=== PATIENT | male | born 1980 | race American Indian/Alaskan Native ===

== ENCOUNTER 2017-05-18 08:59 | Emergency (ER) | payer SELFPAY ==
[2017-05-18 09:14] VITALS: BP 140/86
--- NOTE | 2017-05-18 10:50 | Emergency Department Report ---
HPI - General Chief Complaint: Urogenital-Male Time Seen by Provider: 05/18/17 10:23 - HPI HPI: Patient is a 36-year-old male with no prior medical history who presents to ED complaining of bilateral flank pain and left-sided back pain 2 weeks. Patient states symptoms have gotten worse in the past couple of days brought him in. Patient admits urinary frequency and states sometimes flank pain is related to it urination. Patient denies any injuries/trauma. He denies dysuria, penile discharge, testicular swelling or lesions ED Past Medical Hx - Past Medical History Hx Asthma: Yes - Surgical History Past Surgical History?: Yes Hx Appendectomy: Yes - Social History Smoking Status: Never Smoker Substance Use Type: None ED Review of Systems ROS: Stated complaint: SIDE PAIN Other details as noted in HPI Constitutional: denies: chills, fever Eyes: denies: eye pain, eye discharge, vision change ENT: denies: ear pain, throat pain Respiratory: denies: cough, shortness of breath, wheezing Cardiovascular: denies: chest pain, palpitations Endocrine: no symptoms reported Gastrointestinal: denies: abdominal pain, nausea, diarrhea Genitourinary: denies: urgency, dysuria Musculoskeletal: denies: back pain, joint swelling, arthralgia Skin: denies: rash, lesions Neurological: denies: headache, weakness, paresthesias Psychiatric: denies: anxiety, depression Hematological/Lymphatic: denies: easy bleeding, easy bruising Physical Exam - Physical Exam Vital Signs: Vital Signs 05/18/17 09:10 Temperature 97.7 F Pulse Rate 96 H Respiratory 20 Rate Blood Pressure 140/86 O2 Sat by Pulse 97 Oximetry Physical Exam: GENERAL: Alert and oriented x3, no apparent distress, Normal Gait, atraumatic. HEAD: Head is normocephalic and a-traumatic. LUNGS: Symetrical with respiration, No wheezing, no rales or crackles, CTAB. HEART: S1, S2 present, regular rate and rhythm without murmur, no rubs, no gallops. Non tender to palpation ABDOMEN: No organomegaly was noted,Positive bowel sounds, soft, and non- distended. . Nontender to palpation on all Quadrants, left CVA tenderness. BACK: Full range of motion, no spinal tenderness, nontender to palpation. NEUROLOGIC: The patient is cooperative with no focal neurologic deficits. Normal speech. Normal sensation in bilateral upper and lower extremities, No loss of sensation, SKIN: Warm and dry, No lesions, No ulceration or induration present. ED Course Vital Signs 05/18/17 09:10 Temperature 97.7 F Pulse Rate 96 H Respiratory 20 Rate Blood Pressure 140/86 O2 Sat by Pulse 97 Oximetry ED Medical Decision Making - EKG Data Interpretation: normal EKG - Medical Decision Making 36-year-old male presents with flank pain with leukorrhea ED course: urinalysis obtained. Urinalysis positive for leukorrhea, blood. leuk est Patient received 250 mg of Rocephin, azithromycin 1 g, Flagyl 2 g. Discussed with patient possible STD due to exposure. Discussed possible kidney stone and to follow up with primary care physician Discussed with patient treatment based on symptoms and signs of urethritis. urethritis in Men is most likely caused by gonorrhea and chlamydia patient was treated empirically Discussed prophylaxis treatment patient is to abstain from sex 7-10 days as treatment. Discussed the follow-up with the health department for further STD testing. Patient's alert and oriented times 3. Vital signs are normal patient is in no acute distress. Patient will be discharged home with instructions. - Differential Diagnosis urethritis, kidney stones, cystitis, myalgia Critical care attestation.: If time is entered above; I have spent that time in minutes in the direct care of this critically ill patient, excluding procedure time. ED Disposition Clinical Impression: Flank pain, Urethritis UTI (urinary tract infection) Qualifiers: Urinary tract infection type: acute cystitis Hematuria presence: with hematuria Qualified Code(s): N30.01 - Acute cystitis with hematuria Disposition: TO HOME OR SELFCARE Is pt being admited?: No Does the pt Need Aspirin: No Condition: Stable Instructions: Nonspecific Urethritis in Men (ED), Kidney Stones (ED), Flank Pain (ED), Urinary Tract Infection in Men (ED) Additional Instructions: Make sure to follow up with the primary care physician as discussed. Take all your medications as you've been prescribed. Read instructions as given. If you have any worsening symptoms or develop new symptoms please return to ED immediately. Referrals: COLT FLOYD MD [Primary Care Provider] - 3-5 Days JVUENAL WAHL MD [Referring] - 3-5 Days [facility] [Outside] - 3-[address] [facility] [Outside] - 3-5 Days Forms: STI Treatment and Prevention, Accompanied Note Time of Disposition: 11:35
[2017-05-18 10:55] LABS: Bilirubin,Urine NEG (Negative); Blood,Urine MOD (Negative); Color,Urine Yellow (Yellow); Mucus,Urine 2+ /HPF; Protein,Urine <15 mg/dL mg/dL (Negative); Urobilinogen,Urine < 2.0 mg/dL (<2.0)
[2017-05-18] MEDS ORDERED: ZITHROMAX ONE (11:22)
[2017-05-18] MEDS ORDERED: ROCEPHIN IM ONE (11:22)
[2017-05-18] MEDS: XYLOCAINE 1% MPF 5 mL INFILTRATI ONE (11:29)
[2017-05-18] MEDS: FLAGYL PO ONE (11:29)
[2017-05-18] MEDS: ZITHROMAX PO ONE (11:29)
[2017-05-18] MEDS: ROCEPHIN IM ONE (11:29)
== END 2017-05-18 11:52 | disposition home or self-care (01) ==
LOC: ED 08:59
DX: N30.01 Acute cystitis with hematuria (principal); N34.2 Other urethritis; J45.909 Unspecified asthma, uncomplicated; Z90.49 Acquired absence of other specified parts of digestive tract; Z91.013 Allergy to seafood
CPT/HCPCS: 81001; 96372; 99283; J0696

== ENCOUNTER 2017-06-11 00:32 | Emergency (ER) | payer SELFPAY ==
[2017-06-11 00:52] VITALS: BP 136/87
[2017-06-11 01:49] LABS: Alanine Aminotransferase 16 units/L (7-56); Albumin 4.3 g/dL (3.9-5); BUN/Creatinine Ratio 13; Blood Urea Nitrogen 13 mg/dL (9-20); Calcium 9.3 mg/dL (8.4-10.2); Hemolysis Index 11
[2017-06-11 01:52] LABS: Bacteria,Urine 1+ /HPF (Negative); Bilirubin,Urine NEG (Negative); Blood,Urine LG (Negative); Calcium Oxalate Crystals,Urine FEW; Color,Urine Yellow (Yellow); Mucus,Urine 3+ /HPF; Urobilinogen,Urine < 2.0 mg/dL (<2.0)
[2017-06-11 01:53] LABS: RBC,Urine > 182.0 /HPF (0.0-6.0)
[2017-06-11 01:55] LABS: Basophils % (Auto) 0.5 % (0.0-1.8); Eosinophils # (Auto) 0.2 K/mm3 (0.0-0.4); Eosinophils % (Auto) 3.4 % (0.0-4.3); Hematocrit 46.9 % (35.5-45.6); Hemoglobin 15.1 gm/dl (11.8-15.2); Lymphocytes # (Auto) 1.9 K/mm3 (1.2-5.4); Lymphocytes % (Auto) 35.1 % (13.4-35.0); Mean Corpuscular HGB Conc 32 % (32-34); Mean Corpuscular Volume 71 fl (84-94); Monocytes # (Auto) 0.8 K/mm3 (0.0-0.8); Monocytes % (Auto) 14.4 % (0.0-7.3); Platelet Count 183 K/mm3 (140-440); Red Blood Count 6.65 M/mm3 (3.65-5.03)
[2017-06-11 01:56] LABS: Mean Corpuscular Hemoglobin 23 pg (28-32)
[2017-06-11] MEDS ORDERED: MOTRIN ONE ×3 (02:21→02:24)
[2017-06-11] MEDS ORDERED: MOTRIN PO ONE (05:42)
[2017-06-11] MEDS ORDERED: BENTYL IM ONE (12:30)
--- NOTE | 2017-06-11 12:31 | Emergency Department Report ---
Blank Doc - Documentation Documentation: Patient is a 36-year-old -[place] Citizen male who is presenting with diarrhea for approximately 3 days. Patient states she has some generalized crampy abdominal discomfort. Patient denies any vomiting or fever. Patient will have x-ray was abdomen to rule out a partial obstructive condition.
--- NOTE | 2017-06-11 13:02 | XRay Report ---
ABDOMINAL SERIES: History: Diarrhea, abdominal cramps. Erect chest film shows no acute or significant changes involving the heart or lung molina. There is no evidence of free air beneath the diaphragms. The gas pattern within the abdomen is unremarkable. There is no evidence of bowel dilatation, significant air-fluid levels, or masses. Organ shadows are unremarkable. There are multiple calcifications overlying the left renal shadow. The largest calcification measures 4.2 x 2.0 cm and probably represents a staghorn calculus. IMPRESSION: Left nephrolithiasis.
--- NOTE | 2017-06-11 13:06 | Emergency Department Report ---
ED Abdominal Pain HPI - General Chief Complaint: Abdominal Pain Stated Complaint: ABDOMINAL PAIN Time Seen by Provider: 06/11/17 12:16 Source: patient, family Mode of arrival: Ambulatory Limitations: No Limitations - History of Present Illness Initial Comments: Patient is a 36-year-old -Chinese male who is presenting with diarrhea for approximately 3 days. Patient describes abdominal pain crampy, generalized 10 out of 10 crampy, nothing makes it better and nothing makes it worst. Patient states she has some generalized crampy abdominal discomfort. Patient denies any vomiting or fever. Denies any rectal bleeding. Denies any vomiting. Patient also reports hemorrhoids. He said hemorrhoid is on the outside of his rectum and every time he has diarrhea stool it hurts. He is Also complaining of leg pain assessment ongoing. He said leg pain is crampy. He is pointing to his right calf area. Denies any swelling. Denies any injury. Patient has a history of asthma and has surgery previously appendectomy. Denies any rectal bleeding. Denies any urinary burning, frequency or urgency. Denies any back pain. Denies any blood in his urine. MD Complaint: abdominal pain Onset/Timin -: days(s) Location: diffuse Radiation: none Migration to: no migration Severity: severe Severity scale (0 -10): 10 Quality: cramping Consistency: constant Improves With: nothing Worsens With: nothing Context: possible food poisoning Associated Symptoms: nausea, diarrhea, other (hemorrhoids and). denies: vomiting, fever, chills, constipation, dysuria, hematemesis, hematochezia, melena, hematuria, anorexia, syncope Treatments Prior to Arrival: NSAIDs - Related Data Previous Rx's Medication Instructions Recorded Last Taken Type Ciprofloxacin HCl [Cipro] 500 mg PO Q12H 10 Days #20 tablet 06/11/17 Unknown Rx Dicyclomine [Bentyl] 20 mg PO Q6H PRN #12 tablet 06/11/17 Unknown Rx HYDROcodone/APAP 7.5-325 [[place] 1 each PO Q6HR PRN #12 tablet 06/11/17 Unknown Rx 7.5/325] Hydrocortisone [Proctosol-Hc] 28.35 gm TP BID PRN #1 [email or web address] 06/11/17 Unknown Rx Promethazine [Phenergan TAB] 25 mg PO Q6HR PRN #12 tab 06/11/17 Unknown Rx metroNIDAZOLE [Flagyl] 500 mg PO Q12HR 7 Days #14 tab 06/11/17 Unknown Rx Allergies Allergy/AdvReac Type Severity Reaction Status Date / Time shellfish derived Allergy Hives Verified 05/18/17 09:16 ED Review of Systems ROS: Stated complaint: ABDOMINAL PAIN Other details as noted in HPI Comment: All other systems reviewed and negative Constitutional: no symptoms reported ENT: denies: ear pain, throat pain, congestion Respiratory: no symptoms reported Cardiovascular: denies: chest pain, palpitations, dyspnea on exertion, orthopnea , edema, syncope, paroxysmal nocturnal dyspnea Gastrointestinal: abdominal pain, nausea, diarrhea, other (hemorrhoids). denies : vomiting, constipation, hematemesis, hematochezia Genitourinary: denies: urgency, dysuria, frequency, hematuria, discharge, testicular pain, testicular mass Musculoskeletal: arthralgia. denies: back pain, joint swelling, myalgia Skin: denies: rash Neurological: denies: headache, weakness, numbness, paresthesias, confusion, abnormal gait, vertigo ED Past Medical Hx - Past Medical History Previous Medical History?: Yes Hx Asthma: Yes - Surgical History Past Surgical History?: Yes Hx Appendectomy: Yes - Family History Family history: hypertension - Social History Smoking Status: Never Smoker Substance Use Type: None - Medications Home Medications: Home Medications Medication Instructions Recorded Confirmed Last Taken Type Ciprofloxacin HCl [Cipro] 500 mg PO Q12H 10 Days #20 tablet 06/11/17 Unknown Rx Dicyclomine [Bentyl] 20 mg PO Q6H PRN #12 tablet 06/11/17 Unknown Rx HYDROcodone/APAP 7.5-325 [[place] 1 each PO Q6HR PRN #12 tablet 06/11/17 Unknown Rx 7.5/325] Hydrocortisone [Proctosol-Hc] 28.35 gm TP BID PRN #1 [email or web address] 06/11/17 Unknown Rx Promethazine [Phenergan TAB] 25 mg PO Q6HR PRN #12 tab 06/11/17 Unknown Rx metroNIDAZOLE [Flagyl] 500 mg PO Q12HR 7 Days #14 tab 06/11/17 Unknown Rx ED Physical Exam - General Limitations: No Limitations General appearance: alert, in no apparent distress - Head Head exam: Present: atraumatic, normocephalic, normal inspection - Eye Eye exam: Present: normal appearance, PERRL, EOMI Pupils: Present: normal accommodation - ENT ENT exam: Present: normal exam, normal orophraynx, mucous membranes moist - Neck Neck exam: Present: normal inspection, full ROM, other (no C-spine tenderness). Absent: tenderness, lymphadenopathy - Respiratory Respiratory exam: Present: normal lung sounds bilaterally. Absent: respiratory distress, chest wall tenderness - Cardiovascular Cardiovascular Exam: Present: regular rate, normal rhythm, normal heart sounds - GI/Abdominal GI/Abdominal exam: Present: soft, normal bowel sounds. Absent: distended, tenderness, guarding, rebound, rigid, organomegaly, mass, bruit, pulsatile mass , hernia - Rectal Rectal exam: Present: normal inspection, hemorrhoids (small nonthrombosed left) , tenderness (hemorrhoid site) - Extremities Exam Extremities exam: Present: normal inspection, full ROM, normal capillary refill , other (no clubbing, cyanosis or edema. +2 pulses to all extremities. No neurovascular compromise. +5 strength in all extremities. No abrasion, contusion or laceration to extremities. Bilateral thigh without any abnormality. Nontender to palpate). Absent: tenderness, pedal edema, joint swelling, calf tenderness - Expanded Upper Extremity Exam small nonthrombosed left external hemorrhoid Shoulder Exam: Present: crepidus - Back Exam Back exam: Present: normal inspection, full ROM, other (ambulates without any difficulties). Absent: tenderness, CVA tenderness (R), CVA tenderness (L), muscle spasm, paraspinal tenderness, vertebral tenderness, rash noted - Neurological Exam Neurological exam: Present: alert, oriented X3, normal gait, reflexes normal. Absent: motor sensory deficit - Psychiatric Psychiatric exam: Present: normal affect, normal mood - Skin Skin exam: Present: warm, dry, intact, normal color. Absent: rash ED Course Vital Signs 06/11/17 00:50 Temperature 98.0 F Pulse Rate 77 Respiratory 17 Rate Blood Pressure 136/87 Lab Results 06/11/17 06/11/17 06/11/17 Range/Units 00:49 00:57 00:57 WBC 5.5 (4.5-11.0) K/mm3 RBC 6.65 H (3.65-5.03) M/mm3 Hgb 15.1 (11.8-15.2) gm/dl Hct 46.9 H (35.5-45.6) % MCV 71 L (84-94) fl MCH 23 L (28-32) pg MCHC 32 (32-34) % RDW 15.0 (13.2-15.2) % Plt Count 183 (140-440) K/mm3 Lymph % (Auto) 35.1 H (13.4-35.0) % [place] % (Auto) 14.4 H (0.0-7.3) % Eos % (Auto) 3.4 (0.0-4.3) % Baso % (Auto) 0.5 (0.0-1.8) % Lymph # 1.9 (1.2-5.4) K/mm3 [place] # 0.8 (0.0-0.8) K/mm3 Eos # 0.2 (0.0-0.4) K/mm3 Baso # 0.0 (0.0-0.1) K/mm3 Seg Neutrophils % 46.6 (40.0-70.0) % Seg Neutrophils # 2.5 (1.8-7.7) K/mm3 Sodium 142 (137-145) mmol/L Potassium 4.4 (3.6-5.0) mmol/L Chloride 101.3 (98-107) mmol/L Carbon Dioxide 30 (22-30) mmol/L Anion Gap 15 mmol/L BUN 13 (9-20) mg/dL Creatinine 1.0 (0.8-1.5) mg/dL Estimated GFR > 60 ml/min BUN/Creatinine Ratio 13 % Glucose 92 (75-100) mg/dL Calcium 9.3 (8.4-10.2) mg/dL Total Bilirubin 0.80 (0.1-1.2) mg/dL AST 19 (5-40) units/L ALT 16 (7-56) units/L Alkaline Phosphatase 61 (35-129) units/L Total Protein 6.7 (6.3-8.2) g/dL Albumin 4.3 (3.9-5) g/dL Albumin/Globulin Ratio 1.8 % Urine Color Yellow (Yellow) Urine Turbidity Clear (Clear) Urine pH 6.0 (5.0-7.0) Ur Specific [place] 1.018 (1.003-1.030) Urine Protein 30 mg/dl (Negative) mg/dL Urine Glucose (UA) Neg (Negative) mg/dL Urine Ketones Neg (Negative) mg/dL Urine Blood Lg (Negative) Urine Nitrite Neg (Negative) Urine Bilirubin Neg (Negative) Urine Urobilinogen < 2.0 (<2.0) mg/dL Ur Leukocyte Esterase Lg (Negative) Urine WBC (Auto) 60.0 H (0.0-6.0) /HPF Urine RBC (Auto) > 182.0 (0.0-6.0) /HPF U Epithel Cells (Auto) < 1.0 (0-13.0) /HPF Urine Bacteria (Auto) 1+ (Negative) /HPF Calcium Oxalate Crystal Few Urine Mucus 3+ /HPF Urine culture pending Vital Signs 06/11/17 00:50 Temperature 98.0 F Pulse Rate 77 Respiratory 17 Rate Blood Pressure 136/87 Respiration 18 - Reevaluation(s) Reevaluation #1: 06/11/17 13:[address] Roberto Payne in patient was given Bentyl 20 mg IM and Motrin 800 mg by mouth for pain. Pain is controlled at present. No diarrhea since arrival to the emergency room. Reevaluation #2: 06/11/17 16:20 Patient receive IV fluid 1 L. Positive left kidney stone. Receive Rocephin 1 g IM for acute cystitis with hematuria ED Medical Decision Making - Lab Data Result diagrams: 06/11/17 00:57 06/11/17 00:57 Lab Results 06/11/17 06/11/17 06/11/17 Range/Units 00:49 00:57 00:57 WBC 5.5 (4.5-11.0) K/mm3 RBC 6.65 H (3.65-5.03) M/mm3 Hgb 15.1 (11.8-15.2) gm/dl Hct 46.9 H (35.5-45.6) % MCV 71 L (84-94) fl MCH 23 L (28-32) pg MCHC 32 (32-34) % RDW 15.0 (13.2-15.2) % Plt Count 183 (140-440) K/mm3 Lymph % (Auto) 35.1 H (13.4-35.0) % [place] % (Auto) 14.4 H (0.0-7.3) % Eos % (Auto) 3.4 (0.0-4.3) % Baso % (Auto) 0.5 (0.0-1.8) % Lymph # 1.9 (1.2-5.4) K/mm3 [place] # 0.8 (0.0-0.8) K/mm3 Eos # 0.2 (0.0-0.4) K/mm3 Baso # 0.0 (0.0-0.1) K/mm3 Seg Neutrophils % 46.6 (40.0-70.0) % Seg Neutrophils # 2.5 (1.8-7.7) K/mm3 Sodium 142 (137-145) mmol/L Potassium 4.4 (3.6-5.0) mmol/L Chloride 101.3 (98-107) mmol/L Carbon Dioxide 30 (22-30) mmol/L Anion Gap 15 mmol/L BUN 13 (9-20) mg/dL Creatinine 1.0 (0.8-1.5) mg/dL Estimated GFR > 60 ml/min BUN/Creatinine Ratio 13 % Glucose 92 (75-100) mg/dL Calcium 9.3 (8.4-10.2) mg/dL Total Bilirubin 0.80 (0.1-1.2) mg/dL AST 19 (5-40) units/L ALT 16 (7-56) units/L Alkaline Phosphatase 61 (35-129) units/L Total Protein 6.7 (6.3-8.2) g/dL Albumin 4.3 (3.9-5) g/dL Albumin/Globulin Ratio 1.8 % Urine Color Yellow (Yellow) Urine Turbidity Clear (Clear) Urine pH 6.0 (5.0-7.0) Ur Specific [place] 1.018 (1.003-1.030) Urine Protein 30 mg/dl (Negative) mg/dL Urine Glucose (UA) Neg (Negative) mg/dL Urine Ketones Neg (Negative) mg/dL Urine Blood Lg (Negative) Urine Nitrite Neg (Negative) Urine Bilirubin Neg (Negative) Urine Urobilinogen < 2.0 (<2.0) mg/dL Ur Leukocyte Esterase Lg (Negative) Urine WBC (Auto) 60.0 H (0.0-6.0) /HPF Urine RBC (Auto) > 182.0 (0.0-6.0) /HPF U Epithel Cells (Auto) < 1.0 (0-13.0) /HPF Urine Bacteria (Auto) 1+ (Negative) /HPF Calcium Oxalate Crystal Few Urine Mucus 3+ /HPF - Radiology Data Radiology results: report reviewed atient had CT scan of the abdomen and pelvis without IV contrast which shows large left staghorn calculi. Severe left hydronephrosis. Small stones in the mid to inferior left kidney. Punctate right renal stones without hydronephrosis. Colonic findings suggest diarrhea, mild right colitis or enterocolitis/gastroenteritis but no obstructive pattern. No pelvic mass. Chest x-ray revealed no significant findings. And abdominal series reports left nephrolithiasis. - Medical Decision Making ED course: Patient here complaining of abdominal cramping with diarrhea 3 days with symptoms. Patient had abdominal series which shows nephrolithiasis X-ray shows no acute findings. CT scan of the abdomen and pelvis without contrast show patient with left staghorn calculi and kidney and also severe hydronephrosis and also mild right colitis, or enterocolitis/gastroenteritis. No obstruction seen. Patient does not have any CVA tenderness nor does he have any overt blood in his urine. Pain is controlled after given Motrin 800 mg by mouth and Bentyl 20 mg IM. CBC is stable, chemistries stable without any signs of acute kidney failure. Patient urinalysis with positive white cells, positive leukocyte esterase and large amount of blood. Please refer to laboratory section for details and labs and radiology section for details on radiology testing. I spoke with Dr. Roberto Payne regarding CT findings and laboratory findings include urinalysis. Patient received IV fluids 1 L in emergency room. Patient also found to have small hemorrhoid, externally that is not thrombosed, he complains of thigh pain and examination of both eyes normal without any gait abnormalities. I discussed CT scan findings with patient along with laboratory findings and I discussed with him that he will need to follow-up with urology as outpatient. Patient said that he does not have primary care or access to primary care. I discussed with him that I will refer him to [facility] primary care to call tomorrow to schedule an appointment for physical examination and I will refer him to [facility] regarding colitis and hemorrhoid and to [facility]. Patient voiced understanding the discharge instruction and treatment plan and need to follow up regarding kidney stone. Patient discharged home with prescription for ciprofloxacin, Flagyl, Zofran, Bentyl and [place]. He is in stable condition. Critical care attestation.: If time is entered above; I have spent that time in minutes in the direct care of this critically ill patient, excluding procedure time. ED Disposition Clinical Impression: Kidney stone on left side, Colitis, Arthralgia of right thigh, External hemorrhoid, Acute cystitis with hematuria, Diarrhea in adult patient, Nausea alone, Right kidney stone Abdominal pain Qualifiers: Abdominal location: generalized Qualified Code(s): R10.84 - Generalized abdominal pain Hydronephrosis Qualifiers: Hydronephrosis type: other Qualified Code(s): N13.39 - Other hydronephrosis Disposition: - TO HOME OR SELFCARE Is pt being admited?: No Does the pt Need Aspirin: No Condition: Stable Instructions: Abdominal Pain (ED), Acute Nausea and Vomiting (ED), Kidney Stones (ED), Hemorrhoids (ED), Acute Diarrhea (ED), Nutrition Tips for Relief of Diarrhea (ED), Urinary Tract Infection in Men (ED), Hydronephrosis (ED) Additional Instructions: Please call [facility] scheduled appointment for follow-up kidney stone. [phone]- [phone]. He can call this number today to schedule an appointment for follow-up visit tomorrow. . He had mild inflammation in your colon and will need to be an antibiotic. He also have urinary tract infection so I'll put urine antibiotic to cover urinary tract infection and colon inflammation Please increase her fluid intake Take medication prescribed for hemorrhoid His increase her fluid intake to 2-3 L of water daily Take Phenergan for nausea but please do not drive or operate heavy machinery while taking this medication as it can cause drowsiness Take Bentyl for stomach upset Take [place] for pain but please do not drive or operate heavy machinery while taking this medication Prescriptions: Ciprofloxacin HCl [Cipro] 500 mg PO Q12H 10 Days #20 tablet Dicyclomine [Bentyl] 20 mg PO Q6H PRN #12 tablet PRN Reason: Stomach cramp HYDROcodone/APAP 7.5-325 [[place] 7.5/325] 1 each PO Q6HR PRN #12 tablet PRN Reason: Pain Hydrocortisone [Proctosol-Hc] 28.35 gm TP BID PRN #1 [email or web address] PRN Reason: Hemorrhoids metroNIDAZOLE [Flagyl] 500 mg PO Q12HR 7 Days #14 tab Promethazine [Phenergan TAB] 25 mg PO Q6HR PRN #12 tab PRN Reason: Nausea Referrals: [facility] [Provider Group] - 06/12/17 [facility] [Outside] - 06/13/17 [facility] [Provider Group] - 2-3 Days Forms: Work/School Release Form(ED)
--- NOTE | 2017-06-11 13:23 | Cat Scan Report ---
FINAL REPORT EXAM: CT ABDOMEN PELVIS WO CON HISTORY: diarrhea, hematuria, abd pain TECHNIQUE: CT of the abdomen and pelvis without IV contrast. Coronal and sagittal reconstructed imaging provided. PRIORS: None currently available. FINDINGS: ABDOMEN: Kidneys: Large staghorn calculi at the right inferior collecting system and extending into the pelvis measures 4.0 x 3.0 x 1.9 cm. Smaller stones at the inferior left kidney measures 0.5 x 0.2 cm, 1.3 x 1.2 cm, and 0.8 x 0.9 cm. Severe left hydronephrosis noted. No ureteral stones. Punctate 1 mm stones in the mid and inferior right kidney. No right hydronephrosis. No right ureteral stones identified. Liver, gallbladder, stomach, spleen, pancreas, and adrenals are unremarkable. There is no abdominal aortic aneurysm. IVC is unremarkable. There is no periaortic or retroperitoneal adenopathy or mass. [id number] stool in the left colon. Collapse transverse colon limits the evaluation but a mild wall thickening suspected. Mild wall thickening of the ascending colon. Fluid stool in the right colon. Air-fluid level in the terminal ileum. No wall thickening. The appendix is not identified. There are no pericecal inflammatory changes. Small bowel loops are unremarkable. No obstructive pattern. No wall thickening. No air-fluid levels. No free air. No free fluid. Fat containing umbilical hernia. No strangulation. No mesenteric stranding or adenopathy. PELVIS: Bladder is unremarkable. There is no pelvic mass or adenopathy. Inguinal regions are unremarkable. Bones: No suspicious osseous lesions on this limited examination of the skeleton. Metastatic disease better evaluated with bone scan. IMPRESSION: Large left staghorn calculi. Severe left hydronephrosis. Smaller stones in the mid to inferior left kidney. Punctate right renal stones without hydronephrosis. Colonic findings suggests diarrhea, mild right colitis, or enterocolitis/gastroenteritis. No obstructive pattern.
[2017-06-11] MEDS ORDERED: ROCEPHIN/NS 1 GM/50 ML 1 GM/50 ML BAG IV ONE (13:48)
[2017-06-11] MEDS ORDERED: NACL 0.9% 1000 ML 1,000 ML IV ONE (13:48)
[2017-06-11] MEDS ORDERED: cefTRIAXone 1 GM in NACL 0.9% 20 ML IV ONE (14:30)
== END 2017-06-11 17:11 | disposition home or self-care (01) ==
LOC: ED 00:32
DX: K52.9 Noninfective gastroenteritis and colitis, unspecified (principal); K64.4 Residual hemorrhoidal skin tags; N13.30 Unspecified hydronephrosis; N30.01 Acute cystitis with hematuria; Z91.013 Allergy to seafood
CPT/HCPCS: 36415; 74022; 74176; 80053; 81001; 85025; 96361; 96372; 96374; 99284; J0500; J0696; J7030